=== PATIENT | female | born 1970 | race Caucasian/White ===

== ENCOUNTER 2017-02-17 16:48 | Emergency (ER) | payer OTHER ==
[~2017-02-17] VITALS: Ht 165.1 cm; Wt 77.1 kg
[~2017-02-17 16:48] MED LIST: ABILIFY 5MG5 MG PO; ACETAMINOPHEN/H1 TAB PO; ATIVAN0.5 MG PO; BACTRIM DS 8001 TAB PO; BENTYL20 MG PO; CARISOPRODOL350 MG PO; CEFDINIR300 MG PO; CEPHALEXIN500 M1 PO; CLONIDINE0.1 MG PO; FLEXERIL10 MG PO; FLU VACCINE 0.0.5 ML IM; HYDROCODONE/ACE1 TA1 PO; IBU800 MG PO; KLONOPIN0.5 MG PO; LORAZEPAM0.5 MG PO; MEDROL DOSEPAK1 PAC PO; MOTRIN 400MG (400 MG PO; NAPROXEN500 M2 PO; OXYCODONE HYDRO10 M1 PO; PERCOCET 325 MG1 TA2 PO; PROVENTIL0.09 MG/A1 INH; PYRIDIUM100 MG PO; REMERON 15MG TA15 MG PO; SOMA 350MG TAB350 MG PO; TRAMADOL HCL50 MG PO; ULTRACET 325 MG1 TAB PO; VALPROIC ACID250 MG PO; VICODIN 5-3001 EACH PO; WELLBUTRIN XL150 M1 PO; WELLBUTRIN XL150 MG PO; WELLBUTRIN XL300 M1 PO; ZYPREXA2.5 MG PO
[2017-02-17 16:55] VITALS: BP 147/89
[2017-02-17] MEDS ORDERED: PERCOCET 5-3251 EACH PO (18:25)
--- NOTE | 2017-02-17 18:26 | ED HAND/WRIST INJURY COMPLAINT ---
History of Present Illness General Chief Complaint: Hand or Wrist Injury Stated Complaint: PT CUT HER LEFT HAND Source: patient Exam Limitations: no limitations Vital Signs & Intake/Output Vital Signs & Intake/Output Vital Signs Date Time Temp Pulse Resp B/P Pulse O2 O2 Flow FiO2 Ox Delivery Rate 02/17 1832 100 Room Air 02/17 1655 97.0 95 16 147/89 97 Room Air Allergies Coded Allergies: MDX - Doxycycline (Doxycycline) (ENLARGED LIVER AND HIVES 09/14/15) Reconcile Medications Albuterol Sulfate (Proventil Hfa) 0.09 MG/Actuation KATHRYN 2 PUFF INH Q4H PRN WHEEZING/SHORTNESS OF BREATH Cefdinir 300 MG CAP 2 CAP PO DAILY INFECTION (Reported) Dicyclomine Hydrochloride (Bentyl) 20 MG TAB 1 TAB PO 4 TIMES/DAY PRN ABDOMINAL CRAMPING Hydrocodone/Acetaminophen (Vicodin 5-300 MG Tablet) 5 MG-300 MG TABLET 1 TAB PO Q6 PRN pain Methylprednisolone. (Medrol) 1 PAC PAC 1 PAC PO TAPER bronchitis Naproxen 500 MG TABLET 1 TAB PO Q12 PRN pain Oxycodone HCl/Acetaminophen (Percocet 5-325 MG Tablet) 5 MG-325 MG TABLET 1-2 TAB PO Q6P PRN PAIN Triage Note: PT CUT HER LEFT THUMB ON A APPEALS EXAMINER KNIFE CUTTING CABBAGE. Triage Nurses Notes Reviewed? yes Occurred: just prior to arrival Duration: hour(s):, constant, continues in ED Timing: single episode today Injury Environment: home Severity: mild, moderate Pain/Injury Location: Left: 1st finger. No Modifying Factors: none HPI: 46-year-old female comes into emergency room for further evaluation of laceration to left thumb. Patient cut it while she was chopping cabbage by accident. Patient reports some associated numbness and tingling to the finger. Tetanus shot up-to-date. Associated bleeding. Patient reports that she went to the urgent care center and they sent her here for further evaluation. (SONDRA LITTLEJOHN) Past History Travel History Traveled to [place] past 21 day No Medical History Any Pertinent Medical History? 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 No (SONDRA LITTLEJOHN) Review of Systems Review of Systems Constitutional: Reports: no symptoms. EENTM: Reports: no symptoms. Respiratory: Reports: no symptoms. Cardiovascular: Reports: no symptoms. GI: Reports: no symptoms. Genitourinary: Reports: no symptoms. Musculoskeletal: Reports: no symptoms. Skin: Reports: no symptoms. Neurological/Psychological: Reports: see HPI. Hematologic/Endocrine: Reports: see HPI. Immunologic/Allergic: Reports: no symptoms. All Other Systems: Reviewed and Negative (SONDRA LITTLEJOHN) Physical Exam Physical Exam General Appearance: well developed/nourished Head: atraumatic Eyes: Bilateral: normal appearance. Ears, Nose, Throat: normal ENT inspection, hearing grossly normal Neck: normal inspection Cardiovascular/Respiratory: no respiratory distress Back: normal inspection Shoulder Left: normal range of motion, normal inspection Elbow Left: normal range of motion, normal inspection Hand Left: 1st finger, 1.5 cm laceration Hand Right: normal inspection, normal range of motion Neurologic/Tendon: normal motor functions, normal tendon functions, responds to pain, no evidence tendon injury, no pulse deficit, decreased sensation Skin: intact, normal color, warm/dry Lymphatic: no anterior cervical dae (SONDRA LITTLEJOHN) Progress Differential Diagnosis: cellulitis, contusion, dislocation, felon, gout, paronychia, septic arthritis, tenosynovitis, tendon laceration, foreign body Plan of Care: 02/17/2017 6:41:44 PM Return in 7 days. Limited range of motion on exam. No evidence of tendon laceration. Patient has decreased sensation. Will reevaluate with stiches come out. (SONDRA LITTLEJOHN) Departure Departure Disposition: HOME OR SELF CARE Condition: Stable Clinical Impression Primary Impression: Finger laceration Referrals: LINDA LOPEZ MD (PCP/Family) Additional Instructions: Keep dressing in place for the next 2 days. Watch for signs of infection such as redness on discharge fever chills. Change the dressing every other day. Return if any other concerns worsening symptoms. Please go over all results of today's visit with your primary care doctor. Contact your primary care doctor to let them know you were here in the emergency room. There may be nonspecific findings which may not be related to your visit today here in the emergency room but may require further evaluation and chronic monitoring by your primary care doctor. If you had a laceration today the chance of foreign body always remains. You should follow-up with your primary care doctor for recheck in 3-5 days for a wound check. If you had an x-ray done there is a chance that a fracture could have been missed on initial read and you should follow-up with your primary care doctor for repeat x-rays if symptoms persist. If your blood pressure was elevated here in the emergency room please have rechecked by her primary care doctor within the next 48 hours by your primary care doctor. If you were prescribed a narcotic here in the emergency room or any type of controlled substances you're not allowed to drive while taking this medication or operate any type of heavy machinery. Narcotics can make you feel lightheaded dizziness nausea and can cause constipation. You may need to pepper picker a stool softener. Thank you for choosing [facility] emergency room. Please return to the emergency room immediately if you have any other concerns worsening of symptoms. Departure Forms: Customer Survey General Discharge Information Prescriptions: Current Visit Scripts Oxycodone HCl/Acetaminophen (Percocet 5-325 MG Tablet) 1-2 TAB PO Q6P PRN PAIN #10 TAB (SONDRA LITTLEJOHN) PA/SLAG SKIMMER Co-Sign Statement Statement: ED Attending supervision documentation- [] I saw and evaluated the patient. I have also reviewed all the pertinent lab results and diagnostic results. I agree with the findings and the plan of care as documented in the PA's/SLAG SKIMMER's documentation. [x] I have reviewed the ED Record and agree with the PA's/SLAG SKIMMER's documentation. [] Additions or exceptions (if any) to the PAs/SLAG SKIMMER's note and plan are summarized below: [] (JESSY BAKER DO) Procedures Laceration/Wound Repair Progress: 1.5 cm laceration left thumb, bleeding, Betadine, 2% lidocaine, 3 mL used, 4. 0 nylon use, 5 stitches placed, bacitracin, sterile technique, dry dressing placed , patient tolerated procedure well, (KRIS NICHOLE,SONDRA)
== END 2017-02-17 18:34 ==
LOC: ERH 16:48
DX: S61.012A Laceration without foreign body of left thumb without damage to nail, initial encounter (principal); W26.0XXA Contact with knife, initial encounter; Y93.G1 Activity, food preparation and clean up; Y92.009 Unspecified place in unspecified non-institutional (private) residence as the place of occurrence of the external cause
CPT/HCPCS: J2001

== ENCOUNTER 2018-06-26 06:38 | Inpatient (IN) | payer OTHER ==
[~2018-06-26] VITALS: Ht 165.1 cm; Wt 72.7 kg
[~2018-06-26 06:38] MED LIST changes: +CHERATUSSIN AC118 M1 PO; +PERCOCET 5-3251 EACH PO; +PROAIR HFA8.5 GM INH; +ZITHROMAX250 M2 PO
--- NOTE | 2018-06-26 06:47 | ED PSYCHIATRIC COMPLAINT ---
History of Present Illness General Chief Complaint: Psychiatric Related Complaint Stated Complaint: BIBA, +SI Vital Signs & Intake/Output Vital Signs & Intake/Output Vital Signs Date Time Temp Pulse Resp B/P B/P Pulse O2 O2 Flow FiO2 Mean Ox Delivery Rate 06/26 1945 98.6 94 18 127/80 97 Room Air 06/26 1649 98.3 81 18 132/72 96 Room Air 06/26 1433 97.0 88 18 113/65 96 Room Air 06/26 1314 98.0 94 18 70/49 96 Room Air 06/26 1132 97.2 99 16 104/72 96 Room Air 06/26 1001 98.0 90 18 97/60 100 Room Air 06/26 0845 87 116/74 07 0732 80 110/70 96 Room Air 06/26 0650 98.7 103 21 137/96 100 Room Air Allergies Coded Allergies: doxycycline (Intermediate, HIVES & ENLARGED LIVER? 05/24/18) Onset: Abrupt Duration: day(s): Timing: recent history Severity: moderate Associated Symptoms: anxiety, suicidal ideation HPI: 47 YO WOMAN presents via police on [place] Per the police, "She had a domestic argument.... and said she wanted to kill herself... She'd been drinking a lot." She shares, "I just want to ." She presents belligerent, agitated, and threatening. (Susan SPENCER,Vik Tijerina) General Source: EMS Exam Limitations: intoxication Reconcile Medications Albuterol Sulfate (Proair Hfa) 90 MCG HFA.AER.AD 2 PUF INH Q4-6 PRN PRN BRONCHITIS Albuterol Sulfate (Proventil Hfa) 0.09 MG/Actuation KATHRYN 2 PUFF INH Q4H PRN WHEEZING/SHORTNESS OF BREATH Azithromycin (Zithromax) 250 MG TABLET 1 DP PO AD BRONCHITIS 2 the first day followed by 1 for days 2-5 Cefdinir 300 MG CAP 2 CAP PO DAILY INFECTION (Reported) Dicyclomine Hydrochloride (Bentyl) 20 MG TAB 1 TAB PO 4 TIMES/DAY PRN ABDOMINAL CRAMPING Hydrocodone/Acetaminophen (Vicodin 5-300 MG Tablet) 5 MG-300 MG TABLET 1 TAB PO Q6 PRN pain Meloxicam (Mobic) 15 MG TABLET 15 MG PO DAILY BACK PAIN (Reported) Methylprednisolone. (Medrol) 1 PAC PAC 1 PAC PO TAPER bronchitis Naproxen 500 MG TABLET 1 TAB PO Q12 PRN pain Oxycodone HCl/Acetaminophen (Percocet 5-325 MG Tablet) 5 MG-325 MG TABLET 1-2 TAB PO Q6P PRN PAIN Tramadol HCl 50 MG TABLET 100 MG PO BID BACK PAIN (Reported) Triage Nurses Notes Reviewed? yes (Sánchez Sanchez DO) Past History Travel History Traveled to [place] past 21 day No Medical History Any Pertinent Medical History? 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 No (Susan SPENCER,Vik Tijerina) Review of Systems Review of Systems Constitutional: Reports: no symptoms. EENTM: Reports: no symptoms. Respiratory: Reports: no symptoms. Cardiovascular: Reports: no symptoms. GI: Reports: no symptoms. Genitourinary: Reports: no symptoms. Musculoskeletal: Reports: no symptoms. Skin: Reports: no symptoms. Neurological/Psychological: Reports: no symptoms. Hematologic/Endocrine: Reports: no symptoms. Immunologic/Allergic: Reports: no symptoms. All Other Systems: Reviewed and Negative (Susan SPENCER,Vik Tijerina) Physical Exam Physical Exam General Appearance: well developed/nourished, mild distress Head: atraumatic Eyes: Bilateral: normal appearance. Ears, Nose, Throat: normal pharynx, normal ENT inspection, hearing grossly normal Neck: normal inspection, supple Respiratory: normal breath sounds Cardiovascular: regular rate/rhythm Gastrointestinal: soft, non-tender Extremities: normal range of motion Neurological/Psychiatric: belligerent, agitated, threatening to staff. Appearance/Memory/Insight: disheveled, impaired insight Behavoir/Eye Contact/Speech: uncooperative Thoughts/Hallucinations: no apparent hallucination Skin: intact, normal color, warm/dry SAD PERSONS SAD PERSONS Response Value Age <19 or >45 years? yes 1 Depression/Hopelessness? yes 2 Excessive Ethanol/Drug Use? yes 1 Rational Thinking Loss? yes 2 Social Support? has no support 1 Total 7 SAD PERSONS Done? yes (Susan SPENCER,Vik Tijerina) Progress Differential Diagnosis: depression, suicidality vs other. Plan of Care: Orders Procedure Date/time Status Regular Diet 06/27 B Active Regular Diet 06/26 L Complete Regular Diet 06/26 D Complete Vital Signs 06/26 2052 Active Inpt Psych Teach/Educate 06/26 2052 Active Nutritional Intake, Monitor 06/26 2052 Active Inpt Psych Auricular Acupunctu 06/26 2052 Active URINALYSIS 06/26 1521 Active Lab Add-on Test 06/26 1508 Active Patient Data - inpatient psych 06/26 1503 Active Admit to inpatient psych 06/26 1503 Active URINE 06/26 1210 Complete Restraint- Discontinue 06/26 1200 Active Intake & Output 06/26 1054 Complete Restraint- Behavioral (Order) 06/26 1009 Complete TSH REFLEX 06/26 0730 Complete EKG 06/26 0658 Active Continuous Observation Monitor 06/26 0650 Complete URINE DRUG SCREEN FOR ER ONLY 06/26 0650 Complete ACETOMINOPHEN 06/26 0650 Complete SALICYLATE 06/26 0650 Complete ETHANOL 06/26 0650 Complete COMPREHENSIVE METABOLIC PANEL 06/26 0650 Complete CBC WITHOUT DIFFERENTIAL 06/26 0650 Complete ED CRISIS PSYCH CONSULT 06/26 0650 Active Restraint- Behavioral (Order) 06/26 0649 Complete Vital Signs 06/26 UNK Complete Nursing Misc 06/26 UNK Active CIWA 06/26 UNK Active Alternative Nursing Therapy 06/26 UNK Active Activity/Ambulation 06/26 UNK Active Current Medications Sig/Preet Start time Last Medication Dose Stop Time Status Admin Acetaminophen 650 MG Q6P PRN 06/26 1515 AC (Tylenol) Al Hydroxide/Mg 30 ML Q4-6 PRN PRN 06/26 1515 AC Hydroxide (Maalox Plus) Albuterol Sulfate 2 PUF Q6P PRN 06/26 1515 AC (Ventolin) Gabapentin 300 MG Q6P PRN 06/26 1515 AC (Neurontin) Lorazepam 2 MG Q2P PRN 06/26 1515 AC (Ativan) Lorazepam 1 MG Q2P PRN 06/26 1515 AC (Ativan) Magnesium Hydroxide 30 ML AT BEDTIME NEED.. 06/26 1515 AC (Milk Of Magnesia) Nicotine 2 MG Q2P PRN 06/26 1515 AC (Nicotine) Trazodone HCl 50 MG AT BEDTIME NEED.. 06/26 1515 AC (Desyrel) Folic Acid 1 MG DAILY 06/26 1509 AC 06/26 (Folic Acid) 06/28 901 171 Multivitamins 1 TAB DAILY 06/26 1509 AC 06/26 (Theragran Vitamins) 171 Thiamine HCl 100 MG DAILY 06/26 1509 AC 06/26 (Vitamin B1) 06/28 09 171 Benztropine Mesylate 1 MG Q6P PRN 06/26 1500 AC (Cogentin 1 MG Tablet) Benztropine Mesylate 1 MG Q6P PRN 06/26 1500 AC (Cogentin) Haloperidol 5 MG Q6P PRN 06/26 1500 AC (Haldol) Haloperidol 5 MG Q6P PRN 06/26 1500 AC (Haldol) Lorazepam 2 MG Q6P PRN 06/26 1500 AC (Ativan) Laboratory Tests 06/26/18 1210: Urine Opiates Screen 117, Methadone Screen 46, Barbiturate Screen < 60, Ur Phencyclidine Scrn 8.40, Amphetamines Screen < 100, U Benzodiazepines Scrn < 85, Urine Cocaine Screen > 1000 H, Urine Cannabis Screen 67.10 H, Urine Test NEGATIVE 06/26/18 0730: Anion Gap 16, Estimated GFR > 60, BUN/Creatinine Ratio 26.0 H, Glucose 105 H, Calcium 9.0, Total Bilirubin 0.3, AST 29, ALT 42, Alkaline Phosphatase 52, Total Protein 6.8, Albumin 4.2, Globulin 2.6, Albumin/Globulin Ratio 1.6, TSH &T3 & Free T4 Intrp 1.550, CBC w Diff NO MAN DIFF REQ, RBC 4.48, MCV 89.7, MCH 29.7, MCHC 33.2, RDW 13.3, MPV 7.3 L, Gran % 47.8, Lymphocytes % 41.3, Monocytes % 9.5 H, Eosinophils % 0.8, Basophils % 0.6, Absolute Granulocytes 2.5, Absolute Lymphocytes 2.1, Absolute Monocytes 0.5, Absolute Eosinophils 0, Absolute Basophils 0, Salicylates < 1.0, Acetaminophen < 10.0 L, Serum Alcohol 191.0 06/26/18 0658: Salicylates Cancelled, Acetaminophen Cancelled Hand-Off Endorsed To: Sánchez Sanchez DO Endorsed Time: 0700 Pending: consult, EKG, labs (Susan SPENCER,Vik Tijerina) Departure Departure Disposition: STILL A PATIENT Condition: Stable Clinical Impression Primary Impression: Depression Secondary Impressions: Agitation, Alcohol intoxication, Cocaine abuse Referrals: Navi Dougherty MD (PCP/Family) Departure Forms: Customer Survey General Discharge Information Comments 06/26/18, 7am pt presented with agitated, belligerence, on police peer. Due to her threatening nature, pt placed in restraints and given sedating medications.... pt to see crises... signed out to dr. sanchez. (Susan SPENCER,Vik Tijerina) Psych Admission Note Psychiatric Admission: I have seen and evaluated JUVE COMER. I have also reviewed all the pertinent lab results and diagnostic results. JUVE COMER will be admitted to our inpatient Psychiatric unit for treatment and care. 06/26/18 3:16 PM The patient was seen and evaluated and admitted by crisis to [facility] for SI. She was signed out to me by Dr. Davis at 7 AM (Sánchez Sanchez DO)
[2018-06-26 07:39] LABS: ABSOLUTE BASOPHIL COUNT 0 /CUMM (0.0-0.2); ABSOLUTE EOSINOPHIL COUNT 0 /CUMM (0.0-0.7); ABSOLUTE GRANULOCYTE CT 2.5 /CUMM (1.4-6.5); ABSOLUTE LYMPH COUNT 2.1 /CUMM (1.2-3.4); ABSOLUTE MONOCYTE COUNT 0.5 /CUMM (0.10-0.60); BASOPHIL % 0.6 % (0.0-2.0); EOSINOPHIL % 0.8 % (0-5); GRANULOCYTE % 47.8 % (42.2-75.2); HEMATOCRIT 40.2 % (37-47); MEAN CORPUSCULAR HGB 29.7 PG (27.0-31.0); MEAN CORPUSCULAR HGB CONC 33.2 G/DL (33.0-37.0); MEAN CORPUSCULAR VOLUME 89.7 FL (81.0-99.0); MEAN PLATELET VOLUME 7.3 FL (7.4-10.4); PLATELET COUNT 281 /CUMM (130-400); RBC DISTRIBUTION WIDTH 13.3 % (11.5-14.5); RED BLOOD CELL CT 4.48 /CUMM (4.20-5.40); WHITE BLOOD CELL COUNT 5.1 /CUMM (4.8-10.8)
--- NOTE | 2018-06-26 11:45 | ED PSY CRISIS COLLATERAL NOTE ---
Collateral Note Collateral Note Family/Inform/[facility] Contacts: Officer from [facility] [facility] came to [place] ED to check on patient. He reports the pt was arrested for a domestic dispute around 2:30 a.m. He states that pt was brought to the ED on [facility] instead of going to prison and she was supposed to appear in court today. Officer called Yen (prosecuter) while in crisis office informing her that pt is still a pt and has not been evaluated yet. He provided Yen's phone number [phone]. He states that the patients needs to appear in court once she is released and if she doesn't a re-arrest order will be issued. Explained to officer that pt is not arousable at this time but we would share this information with the pt when she awakes.
--- NOTE | 2018-06-26 14:13 | ED PSYCH CRISIS CONSULTATION ---
See Addendum Crisis Consult Basic Assessment Date of Consult: 06/26/18 Responsible Person/Accompanied By: Self Insurance Authorization: Insurance #1: Insurance name: EMERSON WILSON Phone number: Policy number: [id number] Group number: Authorization number: ED Provider: Patient's ED Provider: Vik Davis MD Primary Care Physician: Patient's PCP: Navi Dougherty MD PCP's Chief Complaint: Psychiatric Related Complaint Patient's Quote: "nothing happened" Present Illness: Pt is a 47 year old female brought in [facility] from [facility] due to pt stating "I took 17 Tramadol and I hope I ." When freelance copywriter questioned pt about this statement, pt states that she made the statement to prove a point. Pt reported having the bottle of Tramadol in her pocket and the police never searched her so she took them to prove a point that the medications could have been more severe. Pt states she knows she cannot taking Tramadol. Pt is in denial of events and is not clear on what happened before being brought into [place]. Pt denies SI, HI, VH, AH at this time. Pt reports having "fun by singing and dancing" with her but it escalated to erratic behavior where the neighbors called the police for a noise complaint. Pts BAL was 191 at 07:30 am and pt was restrained at 07:30 am for combative behavior. Pt utox came back positive for cocaine and marijuana. Pt is dressed in hospital scrubs, fair hygiene, denial of events that led to being arrested and admitted to [place], flat affect and slurred speech at times. Pt is not currently suicidal but has had thoughts, ideations and attmepted suicide in the past. Pt has had a past suicide attempt in 2014 and was admittee to [facility] in 2014. Pt states she feels alright and tired. Pt rates her depression a 3 on a scale of 0-10, 10 being the worst, and her anxiety is a 3 as well. Pt reports her sleep is good, reporting 10 hours of sleep a night. Pt reports her appetite is good and her concentration is okay. Pt has been inpatient in [facility] in 2014 and did [facility] as well. Pt reports using cocaine, marijuana and alcohol on occasion, mostly on weekends to have fun. Pt reports her longest sobriety was of 9 years when her three children were born. Pt reports being arrested twice for possession of narcotics in 2010. Pt is prescribed Tramadol 50 mg. Pt currently sees Dr. Stefano Dougherty, PCP and does not see anyone for psychiatric medications. Pt reports a current stressor is her losing his job and she is the only one with income at this time. Pt lives with her and three triplet boys that are 15 years old. Pt has a 24 year old child who does not reside in the home. Pt reports feeling safe at home and in her relationships with her family. Pt reports no guns in the home. Pt reports that her three children were with there father in his home last night. Pt reports working at [employer] in [place] for the past 6 months and it has been going well. Pt's was contacted and states he did not know his 's whereabouts last night or that she was arrested and did not want to talk to Crisis any further. C-SSRS was completed. Risk factors include past suicidal thoughts, past suicide attempt, thoughts with a plan, previous psychiatric diagnosis and treatment, highly impulsive behaviors, substance abuse, and chronic pain. Protective factors include reasons for living, responsibility for others, supportive family and network, fear of due to pain and suffering, belief suicide is immoral, and engaged in work. Patient's Address: [address] [place] [address] Other Phone Number: Who Do You Live With? Spouse Family/Informants Interviewed: Manager Nursing contacted Pt's Rusty and left a voicemail. ([phone]) Allergies - Coded Allergies: doxycycline (Intermediate, HIVES & ENLARGED LIVER? 05/24/18) Current Medications - Scheduled Medications Azithromycin (Zithromax) 250 MG TABLET 1 DP PO AD BRONCHITIS #6 TAB Prescribed by Macario Villegas MD on 05/23/18 Cefdinir 300 MG CAP 2 CAP PO DAILY INFECTION #20 (Reported) Entered as Reported by Zafar Sanchez on 09/14/15 1138 Methylprednisolone. (Medrol) 1 PAC PAC 1 PAC PO TAPER bronchitis #1 PAC Prescribed by Jaya Gonsales on 10/18/15 Scheduled PRN Medications Albuterol Sulfate (Proair Hfa) 90 MCG HFA.AER.AD 2 PUF INH Q4-6 PRN PRN BRONCHITIS #1 INHAL Prescribed by Macario Villegas MD on 05/23/18 Albuterol Sulfate (Proventil Hfa) 0.09 MG/Actuation KATHRYN 2 PUFF INH Q4H PRN WHEEZING/SHORTNESS OF BREATH #1 Prescribed by Jaya Gonsales on 09/14/15 Dicyclomine Hydrochloride (Bentyl) 20 MG TAB 1 TAB PO 4 TIMES/DAY PRN ABDOMINAL CRAMPING #15 TAB Prescribed by Jaya Gonsales on 09/14/15 Hydrocodone/Acetaminophen (Vicodin 5-300 MG Tablet) 5 MG-300 MG TABLET 1 TAB PO Q6 PRN pain #8 TAB Prescribed by Jaya Gonsales on 09/20/16 Naproxen 500 MG TABLET 1 TAB PO Q12 PRN pain #15 TAB Prescribed by Jaya Gonsales on 09/20/16 Oxycodone HCl/Acetaminophen (Percocet 5-325 MG Tablet) 5 MG-325 MG TABLET 1-2 TAB PO Q6P PRN PAIN #10 TAB Prescribed by Tyrese Starkey on 02/17/17 Laboratory Results: Laboratory Tests 06/26/18 1210: Urine Opiates Screen 117, Methadone Screen 46, Barbiturate Screen < 60, Ur Phencyclidine Scrn 8.40, Amphetamines Screen < 100, U Benzodiazepines Scrn < 85, Urine Cocaine Screen > 1000 H, Urine Cannabis Screen 67.10 H 06/26/18 0730: Anion Gap 16, Estimated GFR > 60, BUN/Creatinine Ratio 26.0 H, Glucose 105 H, Calcium 9.0, Total Bilirubin 0.3, AST 29, ALT 42, Alkaline Phosphatase 52, Total Protein 6.8, Albumin 4.2, Globulin 2.6, Albumin/Globulin Ratio 1.6, CBC w Diff NO MAN DIFF REQ, RBC 4.48, MCV 89.7, MCH 29.7, MCHC 33.2, RDW 13.3, MPV 7.3 L, Gran % 47.8, Lymphocytes % 41.3, Monocytes % 9.5 H, Eosinophils % 0.8, Basophils % 0.6, Absolute Granulocytes 2.5, Absolute Lymphocytes 2.1, Absolute Monocytes 0.5, Absolute Eosinophils 0, Absolute Basophils 0, Salicylates < 1.0, Acetaminophen < 10.0 L, Serum Alcohol 191.0 06/26/18 0658: Salicylates Cancelled, Acetaminophen Cancelled Past History Past Medical History Neurological: NONE EENT: NONE Cardiovascular: NONE Respiratory: NONE Gastrointestinal: NONE Hepatic: NONE Renal: NONE Musculoskeletal: chronic back pain Psychiatric: depression, substance abuse Endocrine: NONE Blood Disorders: NONE Cancer(s): NONE PROJECT COORDINATOR/Reproductive: NONE Past Surgical History Surgical History: non-contributory, spinal fusion Psychosocial History Strengths/Capabilities: Sober for 10 year period in the past; currently working Physical Limitations (Interventions): chronic cervical spine pain. s/p 2 surgeries. Psychiatric Treatment History Psych Treatment Psychiatric Treatment Yes Inpatient Treatment Yes Outpatient Treatment Yes Location of Treatment [facility] Reason for Treatment substance abuse and SI Dates of Treatment 2013 Response to Treatment Completed Diagnosis by History: Depressive disorder Cocaine use disorder Alcohol use disorder Cannibis disorder Substance Use/Abuse History Drug Use/Abuse 1 Substances Used/Abused Yes Substance Used/Abused Cocaine First Use 19 years old Last Used 06/25/18 How much used/taken "a few lines" How often Pt reports twice a month For how long years Route of use Sniffing Drug Use/Abuse 2 Substances Used/Abused Yes Substance Used/Abused Marijuana First Use 14 years old Last Used 06/25/18 How much used/taken "a joint or two" How often every week For how long years Route of use inhaling Drug Use/Abuse 3 Substances Used/Abused Yes Substance Used/Abused Alcohol Last Used 06/25/18 How often "occasional" For how long only on weekends Route of use oral Substance Abuse Treatment Substance Abuse Treatment Past Substance Abuse TX Yes Inpatient Treatment No Outpatient Treatment Yes Location of Treatment [facility] Reason for Treatment substance abuse Dates of Treatment 2013 Response to Treatment completed Current Mental Status Mental Status Orientation: Person, Place, Situation Affect: Blunted, Flat Speech: Mumbled, Soft Neuro-vegetative: Anhedonia, Concentration Poor, Energy Decreased, Helpless Appearance Appearance- Dress/Hygiene: pt is dressed in hospital scrubs and fair hygiene. Behaviors Thought Process: Disorganized Thought Content: WNL Memory: Impaired Insight: Poor SI/HI Risk Assessment Past Suicidal Ideation/Attempts Yes Current Suicidal Ideation/Att No Past Homicidal Ideation/Att: No Current Homicidal Ideation/Attempts No Degree of Intent: Plan, Self Destructive/No Danger To: Self Gravely Disabled: Lack of Insight, Poor Impulse Control, Poor Judgment Risk Factors: chronic/serious med cond., history of suicide atmpts, SA/MH hospitalized, substance abuse, poor impulse control, lack of outcome concern Lethality Ratin PTSD Checklist PTSD Done? patient declined ED Management Sitter: Yes Restraints: Yes DSM5/PS Stressors/Medical Prob Diagnosis' (DSM 5, Stressors, Medical): F32.90 Unspecified Depressive Disorder F14.20 Cocaine Use Disorder Severe F10.20 Alcohol Use Disorder Severe F12.20 Cannibis Use Disorder Severe Chronic Back Pain Current GAF: 25 Departure Disposition Psych Medical Clearance Date: 06/26/18 Medically Cleared at: 1315 Time Started: 1315 Time Ended: 1345 Psychiatrist Consulted: Vik Griffin MD Date Disposition Established: 06/26/18 Time Disposition Established: 1345 Plan for Disposition - Modality: Inpatient Psychiatry Facility: [facility] Follow-up Appt Date: 06/26/18 Rationale for Disposition: PT is a risk to self as evidence by taking 17 Tramadol while using ehto and cocaine. She told police she wanted to . Pt is gravely disabled as she does not have insight into her behaviors. pt has made a suicide attempt in the past in addition to last nights attempt to taking 17 tramadol. Pt is disorganized and is unclear of events that led up to her being brought into the ED. Pt will be admitted to [facility]. Type of IP Admission: PEC Referrals Navi Dougherty MD (PCP/Family)
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
[2018-06-26] MEDS ORDERED: MOBIC15 M1 PO (21:04)
[2018-06-26] MEDS ORDERED: TRAMADOL HCL50 M1 PO (21:05)
[2018-06-27 07:52] VITALS: BP 113/75
[2018-06-27 08:09] VITALS: BP 113/75
--- NOTE | 2018-06-27 10:27 | CPS PROVIDER INIT ASMT PSYCH ---
Psychiatric Admission Contact Printer Dry Film's Note Reviewed: Yes Patient Seen and Examined: Yes Identifying Information: Pt is a 47 year old female Chief Complaint: I do not know why I told him I took that many pills I only took 3 tramadol's. The patient denied that she had suicide intent when she did that. Reaction to Hospitalization: The patient was admitted on a physician emergency certificate History of Present Illness Onset of Illness: Pt reports having "fun by singing and dancing" with her but it escalated to erratic behavior where the neighbors called the police for a noise complaint. Pts BAL was 191 at 07:30 am and pt was restrained at 07:30 am for combative behavior. Pt utox came back positive for cocaine and marijuana. Circumstances Leading to Admission: Neighbor called 911 and the [place] Police [employer] came in and then an ambulance was called and take the patient to the emergency department. Problem(s) Justifying Need for Admission: She did draw a provocative act of taking some tablets of tramadol. Today she says that she only took 3 tablets and that she does not know what she told the manager material she took more. She claims that she wanted to let them know that there were negligent by not checking her pockets first and that this should be checking pupils pockets for their safety." Past Psychiatric History Past Diagnosis(es)- if any: According to notes by Dr. Hardy did back in 2013: Mood disorder NOS with suicidality and overdose prior to admission. Cocaine dependence. Opiate dependence. [place] II: Deferred. [place] III: Degenerative disk disease. Cholelithiasis. Endometriosis. Pyelonephritis. History of hepatic steatosis. Status post cervical fusion. Status post hysterectomy. Past Precipitating Factors- if any: Substance use - Include inpatient and outpatient treatment Treatment History: The patient was once before on the inpatient psychiatric unit at [facility] back in September 2014. She was admitted on October 07 and discharge on October 13, 2014. The discharge plan was to attend AA/NA meetings. And to follow-up with intensive outpatient program dual track at [facility] History of Suicide Attempts or Gestures Records indicate that there was 1 1 previous suicide attempt. Substance Abuse History: Opioid use cocaine use cannabis use Allergies: Coded Allergies: doxycycline (Intermediate, HIVES & ENLARGED LIVER? 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 Other Medical Hx: UTI History of MRSA: No History of VRE: No History of CDIFF: No Isolation History: Standard Surgical History Surgical History: , hysterectomy, CERVICAL FUSION Psychiatric Family/Social Hx Family History Psychiatric Illness: Unknown Substance Use: Unknown Suicides: Unknown Social History Living Situation: With Significant Relationships (family/friends): and kids Education: Please refer to the biopsychosocial assessment by social work Vocation/Occupation: Please refer to the biopsychosocial assessment by social work Legal: Please refer to the biopsychosocial assessment by social work Healthly Behaviors Screening Tobacco Screening Tobacco Use from ED Docu: Cognitive Impairment - If tobacco counseling indicated - the following topics are required. - #1 Recognizing dangerous situations. - #2 Coping Skills. - #3 Basic information about quitting. Status of Tobacco Cessation Counseling: #1, #2 AND #3 Completed Cessation Med Status Nicotine Gum Ordered Alcohol Screening - ETOH screen POS if BAL >=80 or Audit-C>= M4/F3 Audit-C Score from Diag Assess: 4 Blood Alcohol Level: Laboratory Tests 06/26 0730 Toxicology Serum Alcohol (<10 MG/DL) 191.0 Alcohol Use Screening Results: Pos per Audit C &/or BAL - If ETOH counseling indicated - the following topics are required. - #1 Express concern about the patient's - drinking at unhealthy levels, include informing - of national norms for moderate drinking: - men <= 14 drinks/week, max 4 drinks/occasion - women <= 7 drinks/week, max 3 drinks/occasion - #2 Providing feedback, including linking alcohol to - negative physical effects (liver injury, hypertension) - negative emotional effects (relationship problems and - depression) - negative occupational consequences (reduced work - performance) - #3 Advising the patient to abstain from alcohol or - to drink below national norms for moderate drinking - (as listed above). Status of ETOH Use Counseling: #1, #2 AND #3 Completed. Metabolic Screening - Screen if on a Neuroleptic Medication - Metabolic screening should include: - Blood Pressure, BMI, Glucose or Hgb A1c, & a - Lipid profile from within the past 365 days. Metabolic Screening Not Applicable, patient not on a neuroleptic. Exam and Plan Mental Status Examination Ambulation Status: Steady gait Appearance: Unremarkable Attitude towards examiner: Calm and cooperative Psychomotor activity: Normal psychomotor activity Behavior: No abnormal or bizarre behaviors Quality of speech: Normal speech, not pressured Affect: Showed constricted affect Mood: Denied feeling depressed Suicidal Ideation: Denied thinking of suicide Homicidal Ideation: Denied violent thoughts or thinking of homicide Hallucinations: Denied hallucinations Paranoid/Delusional Material: Denied feeling paranoid, there were no delusions during the interview Difficulties with thought organization: She was coherent, no thought disorder Insight: Limited insight Judgment: Questionable judgment Orientation: Alert and oriented to time place, and person. Cognition: Did not seem to have difficulties with information processing Memory Function: Did not seem to have any difficulties with short-term memory Estimate of intellectual functioning: Average Assets/Strengths Patient Identified Assets/Strengths: Average intelligence, resilience, and appears motivated Impression/Plan Impression and Plan: 47-year-old white female who was brought to the emergency department by ambulance after the neighbor called [place] [employer]. The patient reported that she wanted to prove a point to the police that they should have search her pockets and she took 3 tablets of tramadol. - Include all active medical diagnosis that require tx DSM 5 Diagnosis(es): F32.90 Unspecified Depressive Disorder F14.20 Cocaine Use Disorder Severe F10.20 Alcohol Use Disorder Severe F12.20 Cannibis Use Disorder Severe Chronic Back Pain - Initial Tx Plan for Active Psych & Medical Conditions Treatment Plan: Inpatient psychiatric care with safety checks every 15 minutes and Patient does not want his aunt any psychotropic medications at this point in Resume Ultram 100 mg twice daily. - Factors that would help patient function - in a less restrictive setting. Factors: Patient will be discharge after 2 consecutive days without thoughts of suicide
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
--- NOTE | 2018-06-27 14:20 | SOCIAL WORKER SOCIAL HX PSYCH ---
Social History Basic Assessment Insurance Authorization: Insurance #1: Insurance name: [employer]SON Phone number: Policy number: [id number] Group number: Authorization number: Curr Source of Income/Entitlements: employment, food stamps, supports Primary Care Physician: Patient's PCP: Navi Dougherty MD PCP's Primary Language? Citizen Of [place] Language(s) Spoken At Home: Citizen [place] Living Situation Rents or Owns Home? owns Feel Safe Where You Are Living Yes Feel Safe in Relationships? Yes Allergies - Coded Allergies: doxycycline (Intermediate, HIVES & ENLARGED LIVER? 05/24/18) Current Medications - Scheduled Medications Azithromycin (Zithromax) 250 MG TABLET 1 DP PO AD BRONCHITIS #6 TAB Prescribed by Macario Villegas MD on 05/23/18 Cefdinir 300 MG CAP 2 CAP PO DAILY INFECTION #20 (Reported) Entered as Reported by Zafar Sanchez on 09/14/15 1138 Meloxicam (Mobic) 15 MG TABLET 15 MG PO DAILY BACK PAIN (Reported) Entered as Reported by Anna Saldivar on 06/26/182103 Methylprednisolone. (Medrol) 1 PAC PAC 1 PAC PO TAPER bronchitis #1 PAC Prescribed by Jaya Gonsales on 09/14/15 Tramadol HCl 50 MG TABLET 100 MG PO BID BACK PAIN (Reported) Entered as Reported by Anna Saldivar on 06/26/182104 Scheduled PRN Medications Albuterol Sulfate (Proair Hfa) 90 MCG HFA.AER.AD 2 PUF INH Q4-6 PRN PRN BRONCHITIS #1 INHAL Prescribed by Macario Villegas MD on 05/23/18 Albuterol Sulfate (Proventil Hfa) 0.09 MG/Actuation KATHRYN 2 PUFF INH Q4H PRN WHEEZING/SHORTNESS OF BREATH #1 Prescribed by Jaya Gonsales on 09/14/15 Dicyclomine Hydrochloride (Bentyl) 20 MG TAB 1 TAB PO 4 TIMES/DAY PRN ABDOMINAL CRAMPING #15 TAB Prescribed by Jaya Gonsales on 09/14/15 Hydrocodone/Acetaminophen (Vicodin 5-300 MG Tablet) 5 MG-300 MG TABLET 1 TAB PO Q6 PRN pain #8 TAB Prescribed by Jaya Gonsales on 09/20/16 Naproxen 500 MG TABLET 1 TAB PO Q12 PRN pain #15 TAB Prescribed by Jaya Gonsales on 09/20/16 Oxycodone HCl/Acetaminophen (Percocet 5-325 MG Tablet) 5 MG-325 MG TABLET 1-2 TAB PO Q6P PRN PAIN #10 TAB Prescribed by Tyrese Starkey on 02/17/17 Past History Past Medical History Neurological: NONE EENT: NONE Cardiovascular: NONE Respiratory: NONE Gastrointestinal: NONE Hepatic: NONE Renal: NONE Musculoskeletal: chronic back pain Psychiatric: depression, substance abuse Endocrine: NONE Blood Disorders: NONE Cancer(s): NONE 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 Primary Childhood Caretakers: father, mother Family Life During Childhood: "great, [place], had lots of friends" DCF Involvement? No Mother's Age (Current/): 67 (alive) Relationship w/Mother: "good" Mother is a positive source of support. Father's Age (Current/): 72 Relationship w/Father: "good" alive Any Sibling(s)? Yes Sibling's Gender(s)/Age(s): male Sibling 1: Relationship w/Sibling(s): "I don't see or talk to him much. We were not close growing up. Big age difference. I haven't seen him in over a year, lives in [facility]" Relationship w/Friends: Denies any meaningful friendships. Number of Pregnancies: 2 Number of Miscarriages: 0 Abuse/Trauma History Trauma History/Current Trauma: Denies History of Trauma/Abuse Treatment? No Legal History Current Legal Status: alcohol/drug legal problm Pending Court Dates: "when I get out of here" Have you ever been arrested Yes Number of Arrests: 2 Hx of Juvenile Legal Charges? No Hx of Adult Legal Charges? 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 s/p 2 surgeries. History of Seizures? No History of Blackouts? No ADL Limitations: ADL's limited by chronic pain [place]/Social/Peer Relations Pt denies any friendships currently Meaningful Activities: cooking, outdoor activities, fishing, beach, hiking, camping. Childhood Mu-Ism: Yazidism Current Faith Affiliation: no anglican stated Is Spirituality Important to You? "I'm not practicing" Patient's Ethnicity: [place] Cultural/Ethnic Issues: none Are There Developmental Issues? No Milestones Achieved: fine motor, gross motor Psychiatric Treatment History Psych Treatment Inpatient Treatment Yes Outpatient Treatment Yes Location of Treatment [facility] Reason for Treatment substance abuse and SI Dates of Treatment 2013 Response to Treatment Completed Precipitating Factors: drug use Current Seam Checker: none Treatment of Prior Episodes: [facility] 2013. Diagnosis: Depressive disorder Cocaine use disorder Alcohol use disorder Cannibis disorder Psychodynamic Issues: family stress Risk Factors: chronic/serious med cond., history of suicide atmpts, SA/MH hospitalized, substance abuse, poor impulse control, lack of outcome concern Substance Use/Abuse History Drug Use/Abuse:Min 12 mo hx Substance Used/Abused Alcohol First Use 14 years old Last Used 06/25/18 How much used/taken "a joint or two" How often "occasional" For how long only on weekends Route of use oral Have Had Periods of Sobriety? Yes Relapse History? Yes Have You Ever Attended ? No Do You Attend AA Currently? No Do You Have a Sponsor? No Symptoms of Use: Cocaine, Marijuanna, alcohol Substance Abuse Treatment Substance Abuse Treatment Inpatient Treatment No Outpatient Treatment Yes Location of Treatment [facility] Reason for Treatment substance abuse Dates of Treatment 2013 Response to Treatment completed Sexual History Sexually Active Yes # of partners 1 Sexual Orientation Heterosexual Sexual Concerns: Per records: Pt reports lack of sexual interest for the past several years, feels pain and discomfort is a contributing factor. Pt feels lack of intimacy is one of the sources of marital discord. Education History Highest Level of Education: high school/GED Highest Grade Completed: 12 Number of College Years: 0 Preferred Learning Style: experiential HX of Learning Difficulties: None reported Barriers to Learning: None reported Special Communication Needs: None reported Employment History Employment Employed No. of Jobs in Last 5 Years: 0 Attendance: Normal Performance: Good Comments: works at [employer] for 6 months History Have You Been in The ? No Current Mental Status Mental Status Orientation: Current situation Affect: Blunted, Flat Speech: Mumbled, Soft Neuro-vegetative: Anhedonia, Concentration Poor, Energy Decreased, Helpless Appearance Appearance- Dress/Hygiene: pt is dressed in hospital scrubs and fair hygiene. Behaviors Thought Process: Disorganized Thought Content: WNL Memory: Impaired Insight: Poor SI/HI Risk Assessment Past Suicidal Ideation/Attempts Yes Current Suicidal Ideation/Att No Past Homicidal Ideation/Att: No Current Homicidal Ideation/Attempts No Degree of Intent: Plan, Self Destructive/No Danger To: Self Gravely Disabled: Lack of Insight, Poor Impulse Control, Poor Judgment Lethality Ratin - Conclusion and Recommendations for treatment - and discharge planning
--- NOTE | 2018-06-27 16:30 | SOCIAL WORKER PROG NOTE PSYCH ---
See Addendum Social Work Progress Note Progress Note This curriculum writer met with patient. She stated that upon police arrival due to a noise complaint by neighbors, they discovered that she had broken a mirror. She stated that this led to a disorderly conduct charge. Patient explained that while at the police station she commented that the search should be more thorough and Tramadol was found in her pockets. Patient stated that she had taken the Tramadol ("a few pills") however had not intention to harm herself. Patient denied any history of mental health treatment. She stated that she smokes MJ "occassionally" about 2-3 times per month to manage physical pain. She estimated about "a half a joint" each time. Patient reported social alcohol use "every other week when I'm off from work." Patient stated that she lives with her and three children. She denied any history of psychiatric/substance abuse treatment. She reported physical pain due to a spinal fusion following an incident about 25 years ago when she fell off a loft. Patient denied any depression/anxiety/hallucinations/SI/HI and expressed eagerness to return to work. Patient is agreeable to a family meeting with her Rusty. At patient request, this curriculum writer faxed a letter to [facility] informing of her current inpatient admission to . Patient spoke with Portia Drummond, statement request clerk, and was informed that she was expected to appear in court the day after discharge.
[2018-06-27 19:53] VITALS: BP 136/84
[2018-06-28 07:43] VITALS: BP 130/74
--- NOTE | 2018-06-28 11:20 | CP SOUTH PROGRESS NOTE PSYCH ---
Psych (Inpt) Progress Note Progress Note Laboratory Tests 06/27 Sodium (137 - 145 mmol/L) 138 Potassium (3.5 - 5.1 mmol/L) 4.3 Chloride (98 - 107 mmol/L) 100 Carbon Dioxide (22 - 30 mmol/L) 28 Anion Gap (5 - 16) 10 BUN (7 - 17 mg/dL) 17 Creatinine (0.5 - 1.0 mg/dL) 0.6 Estimated GFR (>60 ml/min) > 60 BUN/Creatinine Ratio (7 - 25 %) 28.3 H Vital Signs Date Time Temp Pulse B/P 06/28 0743 97.1 72 130/74 06/27 195 98.0 66 136/84 Mental Status Examination Alert and oriented to time place, and person. Steady gait, Calm and cooperative, Normal psychomotor activity, No abnormal or bizarre behaviors Normal speech, not pressured, Pt. showed brighter affect today, she denied feeling depressed, Denied thinking of suicide, Denied violent thoughts or thinking of homicide, Denied hallucinations Pt. denied feeling paranoid, there were no delusions during the interview She was coherent, no thought disorder, she did not seem to have difficulties with information processing, Did not seem to have any difficulties with short- term memory Assessment: Swetha Krause is a 47-year-old white female who was brought to the emergency department by ambulance after the neighbor called [place] [employer]. The patient reported that she wanted to prove a point to the police that they should have search her pockets and she took 3 tablets of tramadol. She denied since arrival that she was depressed, denied thoughts of suicide, denied suicide attempt, and denied violent thoughts or thoughts of homicide Diagnoses (Updated 06/28/2018): F32.90 Unspecified Depressive Disorder F14.20 Cocaine Use Disorder F12.20 Cannibis Use Disorder Chronic Back Pain Treatment Plan: No psychotropic medications per patient's desire Discharge tomorrow most likely with care for follow-up search her pockets and she took 3 tablets of tramadol. Diagnosis(es): F32.90 Unspecified Depressive Disorder F14.20 Cocaine Use Disorder Severe F10.20 Alcohol Use Disorder Severe F12.20 Cannibis Use Disorder Severe Chronic Back Pain Treatment Plan: Resume Ultram 100 mg twice daily.
--- NOTE | 2018-06-28 17:34 | SOCIAL WORKER PROG NOTE PSYCH ---
Social Work Progress Note Progress Note This property underwriter met with patient. She described her mood as "good" and stated that she had been enjoying groups on [facility]. She denied SI/HI/AH/VH. Patient maintains that she does not want to go to [facility] due to her work scheduled and would like a referral to [facility]. She stated that she had been a client at [facility] "years ago " and would also like a referral to their case management service. Patient was agreeable to a phone meeting with her , Rusty, later today. This property underwriter faxed a referral to [facility], attsimran Chapman. This property underwriter spoke with Adela and informed her that the patient is refusing IOP, would like outpatient treatment as well as case management. Adela has scheduled an intake for at 9:30am with Yaima Brar. Patient accepted this. 4:25pm This property underwriter faxed a letter to the [place] [facility] informing that she is still in the hospital. Patient reviewed letter prior to sending and it was filed in her chart. This property underwriter spoke with Cami at 4:29pm at the Executive Producer' s office confirming receipt of the letter. 4:29am This property underwriter and patient met to call her for a family meeting. Patient requested that this property underwriter does not inform her where she will be participating in outpatient treatment, however, can mention that she has been referred for an intake. Patient stated that during her previous involvement with [facility], DCF was called and became involved. She stated that her may not be supportive of her returning, however, she would like to return for the outpatient services and case management. This property underwriter and patient spoke with her Rusty, by phone. He was informed of the anticipated discharge tomorrow and was comfortable and agreeable with discharge. He stated, "it was an isolated incident." Patient described the "incident" stating that she was at her neighbors house, drinking alcohol, at which time they had an argument and the patient smashed her neighbor's mirror. Police were called and she and her nieghbor were arrested. She stated that she was charged with destruction of property, disorderly conduct and threatening. Patient's stated that her description of "the incident" has been told to him consistently to him by her. Patient stated that she does not plan on having any further contact with her neighber, with which her agreed. Patient asked this property underwriter to inform her of the referral to outpatient services, without mentioning " Care." Patient's agreed with the patient that she is not able to attend IOP due to the time committment and her work schedule. This property underwriter asked about guns in the home, to which she denied having any. Her became very agitated about this question, stating "that 's personal" and not providing a response. This property underwriter explained that the question was from a safety perspective. Patient's stated that the home environment is safe. Rusty was informed that the patient will provide a discharge time tomorrow after the team meeting. Patient will contact him tomorrow once a discharge time is identified.
[2018-06-28 19:58] VITALS: BP 133/76
[2018-06-29 08:04] VITALS: BP 128/80
--- NOTE | 2018-06-29 11:50 | Patient Discharge Instructions ---
Psych Discharge Inst General Discharge Information Reason for Admission: took 3 tablets of ultram to teach police a lesson Psy Discharge Primary Diag+ Unspecified Depressive DO Psy Discharge Secondary Diag+ Cocaine Use Disorder Summary Tests/Major Procedures Lab Anion Gap 10 06/27/18 1509 BUN 17 mg/dL 06/27/18 1509 Carbon Dioxide 28 mmol/L 06/27/18 1509 Chloride 100 mmol/L 06/27/18 1509 Creatinine 0.6 mg/dL 06/27/18 1509 Estimated GFR > 60 ml/min 06/27/18 1509 Potassium 4.3 mmol/L 06/27/18 1509 Sodium 138 mmol/L 06/27/18 1509 Studies Pending at DC: none Patient Instructions Contact Information Your Psychiatrist on [facility] was Zi Hawthorne MD * If you are experiencing an emergency related to this hospitalization, please call [phone] to contact the treating psychiatrist or the psychiatrist-on- call. * To Request a copy of your medical records, please contact the Medical Records Department at [phone]. * To request results of studies pending at the time of discharge, please call [phone]. * Continue your Medications until directed to stop by your Healthcare provider. General Medication Information Please continue to take your new medications and your continued home medications , unless otherwise indicated on your discharge medication list, or unless directed by your MD or PATTERN DATA OPERATOR to stop them. Special Instructions Diet Regular Activity Normal - Tobacco Use Treatment Offered Post DC Medications Offered: Refused Tob Medication Tx Post DC Tobacco Treatment Plan: Refused Tobacco Tx Pgm - EtOH/Drug Use D/O Treatment Offered Post DC Medications Offered: Med Not Indicated for D/O Post DC EtOH/SubAbuse TX Plan: Refused Post DC Tx Pgm Metabolic Screening Not Applicable, patient not on a neuroleptic. Advance Directives Does the Patient have Medical Advance Directives No/Refused further info Does Pt have Psychiatric Advance Directives? No/Refused further info Does Patient have a Designated Surrogate Decision Maker: No Information About Psychiatric Advance Directives Provided? Refused Discharge Plan Post Hospital Treatment Plan: [facility]
--- NOTE | 2018-06-29 12:49 | DISCHARGE SUMMARY REPORT-PSYCH ---
Visit Information Visit Dates/Diagnosis' Admission Date: 06/26/18 Discharge Date: 06/29/18 Reason for Admission: took 3 tablets of ultram to teach police a lesson Psy Discharge Primary Diag: Unspecified Depressive DO Psy Discharge Secondary Diag: Cocaine Use Disorder Hospital Course Significant Lab Findings: Lab Hemoglobin A1c 5.5 % 08/06/16 1106 Urine Cannabis Screen 67.10 NG/ML H 06/26/18 1210 Urine Cocaine Screen > 1000 NG/ML H 06/26/18 1210 Course Complications: Patient did not have any complications while she was on the inpatient psychiatric unit. Consultations: Patient had a history and physical examination by the front office help. Please refer to the patient's electronic health record for the details of the H&P. Allergies: Coded Allergies: doxycycline (Intermediate, HIVES & ENLARGED LIVER? 05/24/18) Hospital Course/TX Response: 06/27/2018: Dr. Hawthorne's Initial Impression and Plan: 47-year-old white female who was brought to the emergency department by ambulance after the neighbor called [place] [employer]. The patient reported that she wanted to prove a point to the police that they should have search her pockets and she took 3 tablets of tramadol. Diagnoses: F32.90 Unspecified Depressive Disorder F14.20 Cocaine Use Disorder Severe F10.20 Alcohol Use Disorder Severe F12.20 Cannibis Use Disorder Severe Chronic Back Pain Treatment Plan: Inpatient psychiatric care with safety checks every 15 minutes and Patient does not want his aunt any psychotropic medications at this point in Resume Ultram 100 mg twice daily. 06/28/2018: No psychotropic medications per patient's desire Discharge tomorrow most likely with care for follow-up 06/29/2018: Mental Status Examination: The Pt. is alert and oriented to time place, and person. She was calm and cooperative, normal psychomotor activity, no abnormal or bizarre behaviors Normal speech, not pressured, Pt. showed bright affect, she denied feeling depressed, Denied thinking of suicide, senied violent thoughts or thinking of homicide, denied hallucinations. Pt. denied feeling paranoid, there were no delusions during the interview. She was coherent, no thought disorder, she did not seem to have difficulties with information processing, no difficulties with short-term memory Assessment Update: Swetha Krause is a 47-year-old White female who was admitted for -- reportedly --taking 3 Ultram tablets because she alleges she wanted to prove a point to the police that they should have searched her pockets. She denied since arrival that she was depressed, denied thoughts of suicide, denied suicide attempt, and denied violent thoughts or thoughts of homicide Diagnoses (Updated 06/28/2018): F32.90 Unspecified Depressive Disorder F14.20 Cocaine Use Disorder F12.20 Cannibis Use Disorder Chronic Back Pain Treatment Plan: Discharge Home F/U with Care Discharge HBIPS - Tobacco Use Treatment Offered Post DC Medications Offered: Refused Tob Medication Tx Post DC Tobacco Treatment Plan: Refused Tobacco Tx Pgm - EtOH/Drug Use D/O Treatment Offered Post DC Medications Offered: Med Not Indicated for D/O Post DC EtOH/SubAbuse TX Plan: Refused Post DC Tx Pgm Metabolic Screening - Screen if on a Neuroleptic Medication - Metabolic screening should include: - Blood Pressure, BMI, Glucose or Hgb A1c, & a - Lipid profile from within the past 365 days. Metabolic Screening Not Applicable, patient not on a neuroleptic. Discharge Instructions General Discharge Information Multiple Neuroleptics: Not Applicable Discharge Diet Regular Discharge Activity Normal DC Disposition: Home Referrals Ordered Referrals [facility] 07/10/[address] [place] [id number] [phone] Intake appointment: 07/10/18, at 9:30am Patient is also interested in case management Outpatient Psych - Substance 07/05/18 [address] [place] [address] [facility] [address] [phone] Group meets every other at 4pm Next group: 07/05/18, at 4pm Prescriptions Continue taking these medications: Albuterol Sulfate (Proair Hfa) 90 MCG HFA.AER.AD 2 Puff Inhale through mouth EVERY 4-6 HOURS NEEDED as needed for BRONCHITIS Qty = 1 Comments: Last Taken:NOT USED IN THE HOSPITAL Time: Meloxicam (Mobic) 15 MG TABLET 15 Milligram ORAL DAILY Comments: Last Taken:06/29/18 Time:8AM Tramadol HCl (Tramadol HCl) 50 MG TABLET 100 Milligram ORAL TWICE DAILY Comments: Last Taken:06/29/18 Time:8AM Studies Pending at Discharge none Copies To: IRAIS Bryson
--- NOTE | 2018-06-29 18:00 | SOCIAL WORKER PROG NOTE PSYCH ---
Social Work Progress Note Progress Note Dr. Hawthorne, Zelda Land (PA student) and this software writer met with patient. Dr. Hawthorne reminded the patient that we are mandated reporters and would need to file (136) with [facility]. She is eager to discharge today and looking forward to returning home. Patient denied SI/HI/hallucinations and identified a safety plan in which she would "call my parents or my ." She was accepting of the crisis numbers and warm lines upon discharge. She confirmed the [facility] appointment with this software writer and stated that she felt safe discharging today. Dr. Hawthorne addressed medications as well as questions and concerns. Patient maintains that she is not interested in taking medications. Patient inquired about court and the four of us called the [place] [facility] together during this meeting. We spoke with Cherry at the order control clerk blood bank's office who, after discussing with her machinist supervisor Swetha Jacobsen, stated that the patient is expected to present to court the day after her discharge. A letter from informing of the discharge date was also requested. Patient expressed concerns about her job and asked if she could present on Tuesday instead, to which Cherry stated that the patient is expected to present the day after discharge. Dr. Hawthorne wrote a letter to the court regarding this. Letter was faxed to [place] [facility], attn: Swetha Jacobsen at [phone] at 1321 on 06/29/18 and is filed in the patient's chart. The letter also includes the discharge date (06/29/18). 1:27pm This software writer left a vm for the patient ([phone]) informing her that the letter had been faxed to the court. 4:09pm This software writer spoke with Amarilis at [facility] ([phone]) regarding discharge clinical.
--- NOTE | 2018-06-29 18:03 | SOCIAL WORKER PROG NOTE PSYCH ---
Social Work Progress Note Progress Note DCF 136 filed (oral report made to Court Acevedo) Faxed to [facility] ([phone]) at 4524 on 06/29/18
--- NOTE | 2018-06-29 18:13 | SOCIAL WORKER PROG NOTE PSYCH ---
Social Work Progress Note Faxed Referral(s) Referred To: [facility] Transition of Care Documents sent: Health Summary Faxed to: Care Fax #: [phone] Faxed by: Antionette Barnes LCSW Date faxed: 06/29/18 Time Faxed: [phone]
== END 2018-06-29 12:50 | DRG 881 ==
LOC: ERH 06:38 → CP SOUTH 15:03 → ERHI 15:03 → CP SOUTH 20:00
PROVIDERS: Pediatrics
DX: F32.9 Major depressive disorder, single episode, unspecified (principal); F14.90 Cocaine use, unspecified, uncomplicated
CPT/HCPCS: 36415; 80307; 81001; 81025; 82436; 93005; 93010; 96372; G0480; J1630; J3490